=== PATIENT | male | born 1955 | race Caucasian/White ===

== ENCOUNTER 2017-10-26 18:02 | Emergency (ER) | payer MEDICARE, OTHER ==
[2017-10-26 18:43] VITALS: BP 155/79; PULSE 98; RESP 16; TEMP 97.6; O2SAT 99
--- NOTE | 2017-10-26 19:08 | ED PDOC ---
Upper Extremity Pain/Injury Time Seen by Provider: 10/26/17 19:04 Chief Complaint (Nursing): Upper Extremity Problem/Injury Chief Complaint (Provider): shoulder injury History Per: Patient (62 y/o male here with right shoulder injury/back pain after fall today at 2pm. Notes pain with movement of arm in back. No head injury noted.) Past Medical History Reviewed: Historical Data, Nursing Documentation, Vital Signs Vital Signs: Last Vital Signs Temp 97.6 F 10/26/17 18:38 Pulse 98 H 10/26/17 18:38 Resp 16 10/26/17 18:38 BP 155/79 H 10/26/17 18:38 Pulse Ox 99 10/26/17 18:38 - Medical History PMH: Arthritis, HTN, Hyperlipidemia Denies: Chronic Kidney Disease - Family History Family History: States: No Known Family Hx - Immunization History Hx Tetanus Toxoid Vaccination: No Hx Influenza Vaccination: Yes (2014) Hx Pneumococcal Vaccination: No - Home Medications Home Medications: Ambulatory Orders Medication Instructions Recorded Aliskiren [Tekturna] 1 tab PO DAILY 08/24/16 Allopurinol [Zyloprim] 1 tab PO DAILY 08/24/16 Atorvastatin [Lipitor] 1 tab PO DAILY 08/24/16 Carvedilol [Coreg] 1 tab PO BID 08/24/16 Clopidogrel [Plavix] 1 tab PO DAILY 08/24/16 Ezetimibe [Zetia] 1 tab PO DAILY 08/24/16 amLODIPine [Norvasc] 1 tab PO DAILY 08/24/16 cloNIDine [Catapres] 1 tab PO BID 08/24/16 diaZEpam [Valium] 5 mg PO Q6 PRN #8 tab 08/24/16 oxyCODONE/Acetaminophen [Percocet 1 ea PO Q6 PRN #10 tab 08/24/16 5/325 mg Tab] Naproxen 1 tab PO Q12 PRN #14 tab 10/26/17 - Allergies Allergies/Adverse Reactions: Allergies Allergy/AdvReac Type Severity Reaction Status Date / Time Penicillins Allergy FEVER Verified 08/24/16 11:23 Review of Systems ROS Statement: Except As Marked, All Systems Reviewed And Found Negative Musculoskeletal: Positive for: Shoulder Pain Physical Exam - Reviewed Nursing Documentation Reviewed: Yes Vital Signs Reviewed: Yes - Physical Exam Appears: Positive for: Well, Non-toxic, No Acute Distress Head Exam: Positive for: ATRAUMATIC, NORMAL INSPECTION, NORMOCEPHALIC Skin: Positive for: Normal Color, Warm, DRY Eye Exam: Positive for: EOMI, Normal appearance, PERRL ENT: Positive for: Normal ENT Inspection Neck: Positive for: Normal, Painless ROM Cardiovascular/Chest: Positive for: Regular Rate, Rhythm Respiratory: Positive for: CNT, Normal Breath Sounds Gastrointestinal/Abdominal: Positive for: Normal Exam, Bowel Sounds, Soft Back: Positive for: Normal Inspection Extremity: Positive for: Normal ROM, Tenderness (tenderness right lateral shoulder. Nontender clavicle. Nontender subscapular region.) Neurologic/Psych: Positive for: Alert, Oriented - ECG O2 Sat by Pulse Oximetry: 99 - Progress ED Course And Treament: dilaudid 0.5 mg IM x 1 dose xry of shoulder right: no acute fx xry of humerus right: no acute fx Placed in shoulder sling. Disposition - Clinical Impression Clinical Impression: Shoulder pain, Biceps tendinitis on right - Patient ED Disposition Is Patient to be Admitted: No - Disposition Referrals: Allan Bonilla MD [Staff Provider] - Disposition: Routine/Home Disposition Time: 19:51 Condition: FAIR Prescriptions: Naproxen 1 tab PO Q12 PRN #14 tab PRN Reason: Pain, Moderate (4-7) Instructions: Shoulder Sprain (ED), Tendinitis (ED) Forms: [facility] ([place]), [facility] ED School/Work Excuse
--- NOTE | 2017-10-27 10:39 | RAD ---
PROCEDURE: Radiographs of the Right Shoulder HISTORY: shoulder injury COMPARISON: No prior. FINDINGS: BONES: Normal. No fracture. JOINTS: [id number] osteoarthritic changes at the AC joint noted. SOFT TISSUES: Normal. OTHER FINDINGS: None. IMPRESSION: No radiographic evidence of acute fracture or dislocation.
--- NOTE | 2017-10-27 10:40 | RAD ---
PROCEDURE: Radiographs of the right humerus. HISTORY: r/o fx COMPARISON: None. FINDINGS: BONES: Normal. No fracture or focal lesion. SOFT TISSUES: Normal. OTHER FINDINGS: None. IMPRESSION: No radiographic evidence of acute displaced fracture in the right humerus.
== END 2017-10-26 20:11 | disposition home or self-care (01) ==
LOC: H.ER 18:02
DX: M25.511 Pain in right shoulder (principal); M75.21 Bicipital tendinitis, right shoulder; E78.5 Hyperlipidemia, unspecified; I10 Essential (primary) hypertension; Z88.0 Allergy status to penicillin
CPT/HCPCS: 73030; 73060; 96372; 99282; J1170

== ENCOUNTER 2018-04-27 13:00 | Emergency (ER) | payer MEDICARE, OTHER ==
[2018-04-27 13:28] VITALS: RESP 20; TEMP 98
[2018-04-27 13:29] VITALS: BMI 33.0
--- NOTE | 2018-04-27 14:06 | ED PDOC ---
HPI: Hypertension/Hypotension Time Seen by Provider: 04/27/18 13:39 Chief Complaint (Nursing): Palpitations Chief Complaint (Provider): Palpitations, HTN History Per: Patient History/Exam Limitations: no limitations Onset/Duration Of Symptoms: Hrs (this morning) Current Symptoms Are (Timing): Still Present Additional Complaint(s): 62 year old male with a hx of hypertension and diabetes presents to the ED for evaluation of elevated blood pressure and palpitations. As per patient, he woke up this morning and checked his BP to find it elevated, so he took his meds and went to see his PMD. His PMD advised to follow up at the ED for further evaluation. Otherwise, patient denies headache, chest pain, shortness of breath , leg swelling, weakness, numbness, or syncope. PMD: Jaciel Owens Past Medical History Reviewed: Historical Data, Nursing Documentation, Vital Signs Vital Signs: Last Vital Signs Temp 98 F 04/27/18 13:28 Pulse 63 04/27/18 13:28 Resp 20 04/27/18 13:28 BP 153/83 H 04/27/18 13:28 Pulse Ox 97 04/27/18 13:28 - Medical History PMH: Arthritis, Diabetes, HTN, Hyperlipidemia Denies: Chronic Kidney Disease - Surgical History Surgical History: No Surg Hx - Family History Family History: States: Unknown Family Hx - Social History Current smoker - smoking cessation education provided: No Alcohol: None Drugs: Denies - Immunization History Hx Tetanus Toxoid Vaccination: No Hx Influenza Vaccination: Yes (2014) Hx Pneumococcal Vaccination: No - Home Medications Home Medications: Ambulatory Orders Medication Instructions Recorded Aliskiren [Tekturna] 1 tab PO DAILY 08/24/16 Allopurinol [Zyloprim] 1 tab PO DAILY 08/24/16 Atorvastatin [Lipitor] 1 tab PO DAILY 08/24/16 Carvedilol [Coreg] 1 tab PO BID 08/24/16 Clopidogrel [Plavix] 1 tab PO DAILY 08/24/16 Ezetimibe [Zetia] 1 tab PO DAILY 08/24/16 amLODIPine [Norvasc] 1 tab PO DAILY 08/24/16 cloNIDine [Catapres] 1 tab PO BID 08/24/16 diaZEpam [Valium] 5 mg PO Q6 PRN #8 tab 08/24/16 oxyCODONE/Acetaminophen [Percocet 1 ea PO Q6 PRN #10 tab 08/24/16 5/325 mg Tab] Naproxen 1 tab PO Q12 PRN #14 tab 10/26/17 - Allergies Allergies/Adverse Reactions: Allergies Allergy/AdvReac Type Severity Reaction Status Date / Time Penicillins Allergy FEVER Verified 08/24/16 11:23 Review of Systems ROS Statement: Except As Marked, All Systems Reviewed And Found Negative Constitutional: Positive for: Other (hypertensive) Cardiovascular: Positive for: Palpitations. Negative for: Chest Pain Respiratory: Negative for: Shortness of Breath Musculoskeletal: Negative for: Other (leg swelling) Neurological: Negative for: Weakness, Numbness, Headache, Other (syncope) Physical Exam - Reviewed Nursing Documentation Reviewed: Yes Vital Signs Reviewed: Yes - Physical Exam Appears: Positive for: Well, Non-toxic, No Acute Distress Head Exam: Positive for: ATRAUMATIC, NORMOCEPHALIC Skin: Positive for: Normal Color, Warm, Dry Eye Exam: Positive for: Normal appearance, EOMI, PERRL ENT: Positive for: Normal ENT Inspection Neck: Positive for: Normal, Painless ROM, Supple Cardiovascular/Chest: Positive for: Regular Rate, Rhythm. Negative for: Murmur Respiratory: Positive for: Normal Breath Sounds. Negative for: Accessory Muscle Use, Respiratory Distress Gastrointestinal/Abdominal: Positive for: Normal Exam, Soft. Negative for: Tenderness Back: Positive for: Normal Inspection Extremity: Positive for: Normal ROM. Negative for: Pedal Edema, Calf Tenderness Neurologic/Psych: Positive for: Alert, Oriented (x3). Negative for: Motor/ Sensory Deficits - Laboratory Results Result Diagrams: 04/27/18 12:51 04/27/18 16:30 - ECG ECG: Positive for: Interpreted By Me, Viewed By Me ECG Rhythm: Positive for: Normal QRS, Normal ST Segment, Sinus Rhythm, Premature Ventricular Contraction. Negative for: ST/T Changes Rate: 62 O2 Sat by Pulse Oximetry: 97 (RA) Pulse Ox Interpretation: Normal - Progress Re-evaluation Time: 17:59 Condition: Re-examined, Improved Medical Decision Making Medical Decision Making: Time: 1345 Initial Impression: hypertension, palpitations Ddx: acute on chronic hypertension, cardiac arrhythmia, r/o hypertensive complications Initial Plan: --EKG --BMP --Trop I --CBC with differential Scribe Attestation: Documented by Kenia Xiong, acting as a scribe for Sandy Way MD. Provider Scribe Attestation: All medical record entries made by the Scribe were at my direction and personally dictated by me. I have reviewed the chart and agree that the record accurately reflects my personal performance of the history, physical exam, medical decision making, and the department course for this patient. I have also personally directed, reviewed, and agree with the discharge instructions and disposition. Disposition - Clinical Impression Clinical Impression: Palpitations, Hypertension - Patient ED Disposition Is Patient to be Admitted: No Doctor Will See Patient In The: Office Counseled Patient/Family Regarding: Studies Performed, Diagnosis, Need For Followup - Disposition Referrals: Jaciel Owens MD [Family Provider] - Toan Chau MD [Medical Doctor] - Disposition: Routine/Home Disposition Time: 17:59 Condition: GOOD Additional Instructions: Take your medications as instructed. Follow up with your PCP tomorrow. Return for worsening. Instructions: High Blood Pressure in Adults, Palpitations (DC)
[2018-04-27 14:12] LABS: BASO # 0.1 K/uL (0.0-0.2); BASO % 0.7 % (0.0-2.0); EOS # 0.3 K/uL (0.0-0.7); EOS % 2.5 % (0.0-4.0); HEMOGLOBIN 13.5 g/dL (12.0-18.0); LYMPH % 19.4 % (20.0-40.0); MEAN CELL VOLUME 99.7 fl (80.0-94.0); MEAN CORPUSCULAR HEMOGLOBIN 33.2 pg (27.0-31.0); MEAN CORPUSCULAR HGB CONC 33.3 g/dL (33.0-37.0); MEAN PLATELET VOLUME 9.4 fl (7.2-11.7); MONO # 1.2 K/uL (0.0-0.8); MONO % 11.1 % (0.0-10.0); NEUT % 66.3 % (50.0-75.0); RBC 4.08 Mil/uL (4.40-5.90); RED CELL DISTRIBUTION WIDTH 13.7 % (11.5-14.5); WHITE BLOOD COUNT 10.6 K/uL (4.8-10.8)
[2018-04-27 16:51] LABS: CALCIUM 9.2 mg/dL (8.4-10.2)
[2018-04-27 17:02] LABS: TROPONIN I 0.025 ng/mL (0.00-0.120)
--- NOTE | 2018-04-27 18:50 | CARD ---
APPROVED REPORT Date of service: 04/27/2018 <Conclusion> Sinus rhythm with occasional premature ventricular complexes Otherwise normal ECG
[2018-04-27 18:55] VITALS: BP 157/78; PULSE 74; O2SAT 98
== END 2018-04-27 18:55 | disposition home or self-care (01) ==
LOC: H.ER 13:00
DX: R00.2 Palpitations (principal); I10 Essential (primary) hypertension; E11.9 Type 2 diabetes mellitus without complications; E78.5 Hyperlipidemia, unspecified; I49.3 Ventricular premature depolarization; Z88.0 Allergy status to penicillin

== ENCOUNTER 2019-01-11 11:33 | Emergency (ER) | payer MEDICARE, OTHER ==
[2019-01-11 11:45] VITALS: BP 124/73; PULSE 63; RESP 17; TEMP 98; O2SAT 97; BMI 32.5
--- NOTE | 2019-01-11 12:39 | ED PDOC ---
HPI: CCC, URI, Sore Throat Time Seen by Provider: 01/11/19 12:16 Chief Complaint (Nursing): Cough, Cold, Congestion Chief Complaint (Provider): Cough, Rib Pain History Per: Patient History/Exam Limitations: no limitations Onset/Duration Of Symptoms: Days (x2) Current Symptoms Are (Timing): Still Present Additional Complaint(s): 63 year old male presents to the ED for evaluation of a dry cough associated with left sided rib pain worse with deep inspiration, coughing, and movement for the past two days. Patient also notes having a tactile fever two days ago. He reports trying to go see his PMD, but since he was on vacation, he came to the ED. Otherwise, denies medication use prior to arrival, sick contacts, recent travel, tobacco use, chills, nausea, vomiting, diarrhea, chest pain, hemoptysis, rash, leg pain / swelling, and orthopnea. PMD: Jaciel Owens Past Medical History Reviewed: Historical Data, Nursing Documentation, Vital Signs Vital Signs: Last Vital Signs Temp 98.0 F 01/11/19 11:44 Pulse 63 01/11/19 11:44 Resp 17 01/11/19 11:44 BP 124/73 01/11/19 11:44 Pulse Ox 97 01/11/19 11:44 - Medical History PMH: Arthritis, CAD, Diabetes, HTN, Hyperlipidemia - Surgical History Surgical History: Appendectomy Other surgeries: bypass in 2001; left shoulder surgery x2; right elbow surgey; right knee replacement - Family History Family History: States: Unknown Family Hx - Social History Current smoker - smoking cessation education provided: No - Home Medications Home Medications: Ambulatory Orders Medication Instructions Recorded Aliskiren [Tekturna] 1 tab PO DAILY 08/24/16 Allopurinol [Zyloprim] 1 tab PO DAILY 08/24/16 Atorvastatin [Lipitor] 1 tab PO DAILY 08/24/16 Carvedilol [Coreg] 1 tab PO BID 08/24/16 Clopidogrel [Plavix] 1 tab PO DAILY 08/24/16 Ezetimibe [Zetia] 1 tab PO DAILY 08/24/16 amLODIPine [Norvasc] 1 tab PO DAILY 08/24/16 cloNIDine [Catapres] 1 tab PO BID 08/24/16 diaZEpam [Valium] 5 mg PO Q6 PRN #8 tab 08/24/16 oxyCODONE/Acetaminophen [Percocet 1 ea PO Q6 PRN #10 tab 08/24/16 5/325 mg Tab] Naproxen 1 tab PO Q12 PRN #14 tab 10/26/17 Acetaminophen [Acetaminophen 8 650 mg PO Q8 PRN #21 tablet.er 01/11/19 Hour] Albuterol Sulfate [Ventolin Hfa] 1 puff IH Q4 PRN #1 unit 01/11/19 Azithromycin [Z-Crescencio] 250 mg PO DAILY #6 tab 01/11/19 Benzonatate [Tessalon Perles] 100 mg PO Q8 PRN #21 sgl 01/11/19 Fluticasone Nasal [Flonase] 1 actuation NS DAILY #1 unit 01/11/19 - Allergies Allergies/Adverse Reactions: Allergies Allergy/AdvReac Type Severity Reaction Status Date / Time Penicillins Allergy FEVER Verified 08/24/16 11:23 Review of Systems ROS Statement: Except As Marked, All Systems Reviewed And Found Negative Constitutional: Positive for: Fever (tactile). Negative for: Chills Cardiovascular: Negative for: Chest Pain Respiratory: Positive for: Cough (dry). Negative for: Hemoptysis Gastrointestinal: Negative for: Nausea, Vomiting, Diarrhea Musculoskeletal: Positive for: Other (left sided rib pain). Negative for: Leg Pain (or swelling) Skin: Negative for: Rash Physical Exam - Reviewed Nursing Documentation Reviewed: Yes Vital Signs Reviewed: Yes - Physical Exam Comments: GENERAL APPEARANCE: Patient is awake, alert, oriented x 3, in no acute distress. Speaking in full sentences. SKIN: Warm, dry; (-) cyanosis. EYES: (-) conjunctival injection ENMT: Mucous membranes moist. Airway patent: (-) stridor. Pharynx: clear, uvula midline (-) hypertrophy (-) erythema, (-) exudate. NECK: Supple, FROM (-) tenderness, (-) stiffness, (-) lymphadenopathy. CHEST AND RESPIRATORY: (+) tenderness to left lateral inferior ribs, (-) ecchymosis, (-) erythema, (-) break in skin integrity (-) rash. (+) dry cough noted. (-) rhonchi, (-) rales, (-) wheezes, (-) retractions; breath sounds equal bilaterally. Respirations even and non-labored. HEART AND CARDIOVASCULAR: (-) irregularity ABDOMEN AND GI: Soft; (-) tenderness. BACK: (+) tenderness to left lower parathoracic (-) ecchymosis, (-) erythema, (- ) break in skin integrity (-) rash (-) midline vertebral tenderness. EXTREMITIES: (-) deformity; (-) edema (-) calf tenderness. NEURO AND PSYCH: Mental status as above. Cranial nerves grossly intact; strength symmetric. Gait: steady. Speech: clear. (-) facial asymmetry - Laboratory Results Result Diagrams: 01/11/19 12:48 01/11/19 12:48 - ECG O2 Sat by Pulse Oximetry: 97 (RA) Pulse Ox Interpretation: Normal Medical Decision Making Medical Decision Making: Initial Impression: cough, acute rib / back pain Time: 1225 Initial Plan: --EKG --BNP --CMP --Trop I --CBC with differential --CXR 2 views --Left ribs XR 2 views --Urinalysis --Tessalon Perles 100mg PO --Toradol 15mg IVP --Valium 5mg PO --Reevaluate CXR Date of service: 01/11/2019 HISTORY: cough, left rib pain COMPARISON: 11/23/2014. TECHNIQUE: Chest PA and lateral views FINDINGS: LUNGS: No active pulmonary disease. PLEURA: No significant pleural effusion identified. No pneumothorax apparent. CARDIOVASCULAR: No aortic atherosclerotic calcification present. No radiographic findings to suggest acute or significant cardiovascular disease. Incidental Finding(s): Postoperative changes related to sternotomy. OSSEOUS STRUCTURES: No significant abnormalities. Postoperative findings related to rotator cuff repair left shoulder. VISUALIZED UPPER ABDOMEN: Normal. OTHER FINDINGS: None. IMPRESSION: No active disease. No significant interval change compared to the prior examination(s). EKG: SB @ 58bpm (-) ST elevation, QTc 455 Date of service: 01/11/2019 PROCEDURE: Radiographs of the Chest and Left Ribs. HISTORY: left sided pain hx of cough, r/o fracture COMPARISON: [facility]. TECHNIQUE: Frontal radiograph of the chest and multiple oblique radiographs of the left ribs were obtained. 4 views obtained. FINDINGS: LEFT RIBS: No fracture or focal lesion visualized. LUNGS: Clear. PLEURA: No pneumothorax or pleural fluid. CARDIOVASCULAR: Normal cardiac size. No pulmonary vascular congestion. No aortic atherosclerotic calcification present OTHER FINDINGS: None. IMPRESSION: Unremarkable radiographs of the chest and left ribs. No left rib fracture. 1415 Labs reviewed and grossly unremarkable. Troponin and BNP WNL. On re-evaluation, patient resting comfortably in no acute distress. Patient to be provided with Rx for Zpak, which he was advised to start if their is no improvement of cough within the next 48 hours. Patient requesting Rx for Promethazine with Codeine but was advised to obtain Rx from PMD. On re-evaluation, patient reports improvement of symptoms. On exam, patient remains AAOx3, in no acute distress. Lungs clear to auscultation, cardiac RRR, abdomen soft, non-tender, repeat neuro exam shows no focal findings. Vitals stable. Lab/Diagnostic results d/w the patient in great detail. Diagnosis of cough, left sided rib pain, to consider bronchitis d/w the patient. Based on history, exam and diagnostic results, plan will be for outpatient follow up with PMD. Patient instructed to follow-up with pmd / referral provided / the clinic in 1- 2 days without fail. Advised to take medication as prescribed. Return to the emergency room at any time for any new or worsening symptoms. Patient states he fully agrees with and understands discharge instructions. States that he agrees with the plan and disposition. Verbalized and repeated discharge instructions and plan. I have given the patient opportunity to ask any additional questions. Scribe Attestation: Documented by Kenia Xiong, acting as a scribe for Keisha Monet PA-C. Provider Scribe Attestation: All medical record entries made by the Scribe were at my direction and personally dictated by me. I have reviewed the chart and agree that the record accurately reflects my personal performance of the history, physical exam, medical decision making, and the department course for this patient. I have also personally directed, reviewed, and agree with the discharge instructions and disposition. Disposition - Clinical Impression Clinical Impression: Cough, Bronchitis, Rib pain on left side - Patient ED Disposition Is Patient to be Admitted: No Counseled Patient/Family Regarding: Studies Performed, Diagnosis, Need For Followup, Rx Given - Disposition Referrals: Jaciel Owens MD [Family Provider] - Disposition: Routine/Home Disposition Time: 14:20 Condition: STABLE Additional Instructions: The emergency medical care you received today was directed at your acute sympto ms. If you were prescribed any medication, please fill it and take as directed. It may take several days for your symptoms to resolve. Return to the Emergency Department if your symptoms worsen, do not improve, or if you have any other problems. Please contact your doctor in 2 days for re-evaluation and follow up / or call one of the physicians/clinics you have been referred to that are listed on the Patient Visit Information form that is included in your discharge packet. Bring any paperwork you were given at discharge with you along with any medications you are taking to your follow up visit. Our treatment cannot replace ongoing medical care by a primary care provider (PCP) outside of the emergency department. Prescriptions: Acetaminophen [Acetaminophen 8 Hour] 650 mg PO Q8 PRN #21 tablet.er PRN Reason: Pain, Mild (1-3) Albuterol Sulfate [Ventolin Hfa] 1 puff IH Q4 PRN #1 unit PRN Reason: Cough Azithromycin [Z-Crescencio] 250 mg PO DAILY #6 tab Benzonatate [Tessalon Perles] 100 mg PO Q8 PRN #21 sgl PRN Reason: Cough Fluticasone Nasal [Flonase] 1 actuation NS DAILY #1 unit Instructions: Cough in Adults, Costochondritis, Acute Bronchitis Forms: [employer] ([place]) Print Language: MOHAWK - POA Present On Arrival: None Results - Diagnostic Imaging Results Radiology Results Chest X-Ray 01/11/19 12:22 IMPRESSION: No active disease. No significant interval change compared to the prior examination(s). Ribs X-Ray 01/11/19 13:20 IMPRESSION: Unremarkable radiographs of the chest and left ribs. No left rib fracture. - Lab Results Lab Results: 01/11/19 01/11/19 12:48 12:48 WBC 9.4 RBC 3.98 L Hgb 13.2 Hct 39.2 MCV 98.4 H MCH 33.1 H MCHC 33.7 RDW 13.5 Plt Count 249 MPV 9.3 Neut % (Auto) 67.4 Lymph % (Auto) 18.5 L [place] % (Auto) 11.0 H Eos % (Auto) 2.3 Baso % (Auto) 0.8 Neut # (Auto) 6.3 Lymph # (Auto) 1.7 [place] # (Auto) 1.0 H Eos # (Auto) 0.2 Baso # (Auto) 0.1 Sodium 141 Potassium 4.3 Chloride 104 Carbon Dioxide 26 Anion Gap 15 BUN 20 Creatinine 1.6 H Est GFR ( Amer) 53 Est GFR (Non-Af Amer) 44 Random Glucose 137 H Calcium 9.1 Total Bilirubin 0.7 AST 34 ALT 31 Alkaline Phosphatase 102 Troponin I 0.0170 NT-Pro-B Natriuret Pep 297 Total Protein 7.6 Albumin 4.3 Globulin 3.3 Albumin/Globulin Ratio 1.3
[2019-01-11 12:56] LABS: BASO # 0.1 K/uL (0.0-0.2); BASO % 0.8 % (0.0-2.0); EOS # 0.2 K/uL (0.0-0.7); EOS % 2.3 % (0.0-4.0); HEMOGLOBIN 13.2 g/dL (12.0-18.0); LYMPH # 1.7 K/uL (1.0-4.3); LYMPH % 18.5 % (20.0-40.0); MEAN CELL VOLUME 98.4 fl (80.0-94.0); MEAN CORPUSCULAR HEMOGLOBIN 33.1 pg (27.0-31.0); MEAN CORPUSCULAR HGB CONC 33.7 g/dL (33.0-37.0); MEAN PLATELET VOLUME 9.3 fl (7.2-11.7); NEUT # 6.3 K/uL (1.8-7.0); NEUT % 67.4 % (50.0-75.0); RBC 3.98 Mil/uL (4.40-5.90); RED CELL DISTRIBUTION WIDTH 13.5 % (11.5-14.5); WHITE BLOOD COUNT 9.4 K/uL (4.8-10.8)
[2019-01-11 13:03] LABS: ALB/GLOB RATIO 1.3 (1.0-2.1); ALBUMIN 4.3 g/dL (3.5-5.0); CALCIUM 9.1 mg/dL (8.4-10.2)
[2019-01-11 13:14] LABS: TROPONIN I 0.017 ng/mL (0.00-0.120)
--- NOTE | 2019-01-11 13:23 | RAD ---
Date of service: 01/11/2019 HISTORY: cough, left rib pain COMPARISON: 11/23/2014. TECHNIQUE: Chest PA and lateral views FINDINGS: LUNGS: No active pulmonary disease. PLEURA: No significant pleural effusion identified. No pneumothorax apparent. CARDIOVASCULAR: No aortic atherosclerotic calcification present. No radiographic findings to suggest acute or significant cardiovascular disease. Incidental Finding(s): Postoperative changes related to sternotomy. OSSEOUS STRUCTURES: No significant abnormalities. Postoperative findings related to rotator cuff repair left shoulder. VISUALIZED UPPER ABDOMEN: Normal. OTHER FINDINGS: None. IMPRESSION: No active disease. No significant interval change compared to the prior examination(s).
--- NOTE | 2019-01-11 14:11 | RAD ---
Date of service: 01/11/2019 PROCEDURE: Radiographs of the Chest and Left Ribs. HISTORY: left sided pain hx of cough, r/o fracture COMPARISON: [facility]. TECHNIQUE: Frontal radiograph of the chest and multiple oblique radiographs of the left ribs were obtained. 4 views obtained. FINDINGS: LEFT RIBS: No fracture or focal lesion visualized. LUNGS: Clear. PLEURA: No pneumothorax or pleural fluid. CARDIOVASCULAR: Normal cardiac size. No pulmonary vascular congestion. No aortic atherosclerotic calcification present OTHER FINDINGS: None. IMPRESSION: Unremarkable radiographs of the chest and left ribs. No left rib fracture.
--- NOTE | 2019-01-11 18:40 | CARD ---
APPROVED REPORT Date of service: 01/11/2019 EKG Measurement Heart [id number] <Conclusion> Sinus bradycardia Otherwise normal ECG
== END 2019-01-11 14:46 | disposition home or self-care (01) ==
LOC: H.ER 11:33
DX: R05 Cough (principal); J40 Bronchitis, not specified as acute or chronic; R07.81 Pleurodynia; E11.9 Type 2 diabetes mellitus without complications; I10 Essential (primary) hypertension; Z79.899 Other long term (current) drug therapy; Z96.651 Presence of right artificial knee joint; Z88.0 Allergy status to penicillin; I25.10 Atherosclerotic heart disease of native coronary artery without angina pectoris
CPT/HCPCS: 71046; 71100; 80053; 83880; 84484; 85025; 93005; 96374; 99282; J1885